=== PATIENT | male | born 1975 ===

== ENCOUNTER 2019-03-08 20:28 | Emergency (ER) | payer OTHER ==
[~2019-03-08] VITALS: Ht 180.3 cm; Wt 88.5 kg
[2019-03-08] MEDS ORDERED: SYNTHROID150 MCG (20:57)
== END 2019-03-08 23:52 | disposition home or self-care (01) ==
LOC: ER 20:28
DX: N20.0 Calculus of kidney (principal); R10.32 Left lower quadrant pain